=== PATIENT | female | born 1960 | race Caucasian/White ===

== ENCOUNTER 2017-01-13 13:17 | Inpatient (IN) | payer MEDICAID, OTHER ==
[2017-01-13] MEDS ORDERED: Multivitamin Inj 10 ML, Thiamine HCL 100 MG, Magnesium Sulfate 2 GM, Folic Acid 1 MG in... IV ONE (13:49)
--- NOTE | 2017-01-13 13:58 | ED Physician Chart ---
Chief Complaint/HPI - Patient Information Date Seen:: 01/13/17 Time Seen:: 13:40 Chief Complaint:: generalized weakness History of Present Illness:: fell yesterday because of generalized weakness striking right eyebrow on the floor. States her knees "gave out." Able to walk all right today. States she drinks about half a pint of vodka per day, enough "to keep the shakes away." Allergies:: Allergies Allergy/AdvReac Type Severity Reaction Status Date / Time No Known Allergies Allergy Verified 01/13/17 13:38 Vitals:: Vital Signs - 8 hr 01/13/17 13:38 Temp 96.6 F HR 100 RR 16 BP 105/65 O2 Sat % 100 Historian:: Patient Review:: Old Chart Reviewed Review of Systems - Review of Systems General/Constitutional: No fever, No chills Skin: Skin lesions Head: No headache Eyes: No loss of vision ENT: No earache Neck: No neck pain Cardio Vascular: No chest pain, No palpitations Pulmonary: No SOB GI: No nausea, No vomiting G/U: No dysuria, No frequency Musculoskeletal: No bone or joint pain, No back pain Endocrine: No polyuria, No polydipsia Psychiatric: No prior psych history Hematopoietic: No bruising Allergic/Immuno: No urticaria Neurological: No syncope, No focal symptoms Past Medical History - Past Medical History Past Medical History: No significant medical hx Family History: HTN Social History: Smoker, Other (smokes half a PPD) Surgical History: Appendectomy Psychiatricy History: None Medication: None Family Medical History - Family Member Niece History Unknown: Yes Mother History Unknown: Yes Ethnicity: Non- Living Status: Hx Family Cancer: No Hx Family Coronary Artery Disease: No Hx Family Congestive Heart Failure: No Hx Family Hypertension: Yes Hx Family Stroke: No Hx Family Diabetes: No Hx Family Seizures: No Hx Family Dementia: No Hx Family AIDS: No Hx Family HIV: No Hx Family COPD: No Hx Family Hepatitis: No Hx Family Psychiatric Problems: No Hx Family Tuberculosis: No Physical Exam - Physical Examination General/Constitutional: Awake Other Gen/Cons comments:: mildly chronically ill appearing; tremulous Other Head comments:: 1 cm crusted right lateral eyebrow laceration Eyes: Lids, conjuctiva normal, PERRL Skin: No rash, No ecchymosis, Well hydrated ENMT: External ears, nose nl, TM canals nl, Nasal exam nl, Lips, teeth, gums nl , Oropharynx nl, Tonsils nl Neck: No nuchal rigidity Respiratory: Nl effort/Exclusion, Clear to Auscultation, No Wheeze/Rhonchi/Rales Cardio Vascular: RRR, No murmur, gallop, rubs GI: No tenderness/rebounding/guarding, No organomegaly, No hernia, Nondistended , No mass/bruits : No CVA tenderness Extremities: No tenderness or effusion Neuro/Psych: No focal deficits Labs/Radiology/EKG Results - Lab Results Comments:: Laboratory Results - last 24 hr 01/13/17 01/13/17 01/13/17 13:50 13:50 13:50 WBC 8.2 RBC 2.43 L Hgb 7.9 L* Hct 23.2 L* D MCV 95.8 MCH 32.5 H MCHC Differential 33.9 RDW 21.1 H Plt Count 77 L MPV 7.3 Band Neutrophils % 1 Neutrophils (Manual) 87 H Lymphocytes 4 L Monocytes 7 Basophils 1 Nucleated RBCs 1.0 H Platelet Estimate DECREASED PLATELETS Platelet Morphology NORMAL Anisocytosis 1+ RBC Morph Micro Appear ABNORMAL PT 10.9 INR 1.05 Sodium 141 Potassium 3.3 L Chloride 104 Carbon Dioxide 19.1 L Anion Gap 21.2 H BUN 17 Creatinine 0.8 Est GFR ( Amer) > 60.0 Est GFR (Non-Af Amer) > 60.0 BUN/Creatinine Ratio 21.3 Glucose 208 H Calcium 8.7 Magnesium Total Bilirubin 0.5 AST 51 H ALT 30 Alkaline Phosphatase 80 Total Protein 6.0 Albumin 3.8 Globulin 2.2 Albumin/Globulin Ratio 1.7 Lipase 25 Ethyl Alcohol 256 H 01/13/17 13:50 WBC RBC Hgb Hct MCV MCH MCHC Differential RDW Plt Count MPV Band Neutrophils % Neutrophils (Manual) Lymphocytes Monocytes Basophils Nucleated RBCs Platelet Estimate Platelet Morphology Anisocytosis RBC Morph Micro Appear PT INR Sodium Potassium Chloride Carbon Dioxide Anion Gap BUN Creatinine Est GFR ( Amer) Est GFR (Non-Af Amer) BUN/Creatinine Ratio Glucose Calcium Magnesium 1.6 L Total Bilirubin AST ALT Alkaline Phosphatase Total Protein Albumin Globulin Albumin/Globulin Ratio Lipase Ethyl Alcohol ED Septic Shock - . Is Septic Shock (SBP<90, OR Lactate>4 mmol\\L) present?: No - <6hrs of presentation: Vital Signs: Vital Signs - 8 hr 01/13/17 13:38 Temp 96.6 F HR 100 RR 16 BP 105/65 O2 Sat % 100 Reassessment (Disposition) - Reassessment Reassessment Condition:: Unchanged - Diagnosis Diagnosis:: anemia; hypomagnesemia; hypokalemia; alcohol intoxication; acute and chronic alcohol abuse; alcohol withdrawal - Patient Disposition Admitted to:: Telemetry Spoke to:: Tyrese West Admitting Medical Physician:: Tyrese West Condition at Disposition:: Stable, Improved
[2017-01-13 14:11] LABS: MEAN CELL VOLUME 95.8 fl (81-100); MEAN CORPUSCULAR HEMOGLOBIN 32.5 pg (27.0-31.0); MEAN CORPUSCULAR HGB CONC 33.9 pg (28.0-36.0); MEAN PLATELET VOLUME 7.3 fl; RED BLOOD COUNT 2.43 Mil/cmm (3.80-5.10); RED CELL DISTRIBUTION WIDTH 21.1 % (11.5-20.0); WHITE BLOOD COUNT 8.2 Th/cmm (4.8-10.8)
[2017-01-13] MEDS ORDERED: Thiamine 100 mg/mL 2mL Vial ONE (14:13)
[2017-01-13] MEDS ORDERED: Magnesium Sulfate 1 gm/2 mL 2mL Vial IV ONE (14:13)
[2017-01-13] MEDS ORDERED: Multivitamin Inj 10 mL Vial IV ONE (14:14)
[2017-01-13 14:16] LABS: PLATELET COUNT 77 Th/cmm (150-400)
[2017-01-13 14:17] LABS: HEMATOCRIT 23.2 % (35.0-45.0); HEMOGLOBIN 7.9 gm/dL (11.7-15.5)
[2017-01-13 14:18] LABS: INR 1.05 (0.5-1.4); PROTHROMBIN TIME (TEST) 10.9 SECONDS (9.5-11.5)
[2017-01-13 14:22] LABS: ALB/GLOB RATIO 1.7 (1.0-1.8); ALKALINE PHOSPHATASE 80 U/L (34-104); ANION GAP 21.2 (7.0-16.0); BILIRUBIN,TOTAL 0.5 mg/dL (0.3-1.0); BUN - UREA NITROGEN 17 mg/dL (7-25); BUN/CREATININE RATIO 21.3; CALCIUM SERUM 8.7 mg/dL (8.6-10.3); CARBON DIOXIDE 19.1 mEq/L (21.0-31.0); CHLORIDE 104 mEq/L (98-107); CREATININE - SERUM 0.8 mg/dL (0.6-1.2); GLUCOSE 208 mg/dL (70-105); LIPASE 25 U/L (11-82); POTASSIUM SERUM 3.3 mEq/L (3.5-5.1); SGOT 51 U/L (13-39); SGPT/ALT 30 U/L (7-52); SODIUM SERUM 141 mEq/L (136-145)
[2017-01-13 15:15] LABS: ANISOCYTOSIS 1+; BAND NEUTROPHILE 1 % (0-10); BASOPHIL 1 % (0-3); NEUTROPHILS 87 % (40-80); PLATELET ESTIMATE DECREASED PLATELETS (NORMAL); PLATELET MORPHOLOGY NORMAL (NORMAL); TOTAL CELLS COUNTED 100
[2017-01-13] MEDS ORDERED: Potassium Chloride 20 mEq ER Tab PO ONE (15:37)
--- NOTE | 2017-01-13 17:16 | Admit Criteria Form ---
Admit Criteria Forms - Admit Criteria Diagnosis: ANEMIA, IRON DEFICIENCY OR UNSPECIFIED Clinical Indications for Inpatient Care (Place 'X' for any and all applicable criteria): Admission is indicated for ANY ONE of the following(1)(2)(3)(4)(5)(6)(7): [X] I. Inpatient admission required rather than observation care (Also use Anemia, Iron Deficiency or Unspecified: Observation Care guideline as appropriate) because of ANY ONE of the following: [] a) Hemodynamic instability that is severe or persistent [] b) Active bleeding that cannot be rapidly controlled [] c) CVS symptoms (i.e., dyspnea, chest pain, heart failure) that are severe or persistent [] d) Neurologic symptoms (i.e., cognitive impairment, recurrent syncope or near syncope) that are severe or persistent [] e) Cardiac arrhythmias of immediate concern [] f) Acute peripheral ischemia (e.g., pulseless, cool, mottled, or cyanotic extremity) [X] g) High-risk low platelet count [] h) Acute renal failure [] i) Ongoing transfusion for blood loss (greater than 2 units) [] j) IV fluid to replace significant ongoing (eg, >24 hours) losses (> 3 L/m2 per day) [] k) Pulmonary artery catheter monitoring [] l) Supplemental oxygen or respiratory treatments for over 24 hours that are performable only in acute inpatient setting [] m) Immediate inpatient surgery [] n) Other condition, treatment or monitoring requiring inpatient admission [] II Active massive hemorrhage [] III. Active hemolysis with rapidly progressive anemia [A](6) Extended stay beyond goal length of stay may be needed for (17)(18) []a) Diagnosed cause of anemia requiring longer hospitalization (eg, active GI bleeding, immune hemolysis requiring electrophoresis, complications of malignancy requiring acute care []b) Continued emergent anemia indicators (23) []c) Transfusion reactions []d) Associated leukopenia or thrombocytopenia needing inpatient care []e) Active comorbidities (eg, renal failure, heart failure) The original [employer] content created by [employer] has been revised. The portions of the content which have been revised are identified through the use of italic text or in bold. [employer] has neither reviewed nor approved the modified material. All other unmodified content is copyright [employer]. Please see references footnoted in the original [facility] edition 2016 Admit Criteria Met?: Yes
[2017-01-13] MEDS ORDERED: Potassium Chloride Elixir 20 mEq /15 mL UDC ONE (18:17)
[2017-01-14 03:55] LABS: URINE BILIRUBIN SMALL (NEGATIVE); URINE BLOOD LARGE (NEGATIVE); URINE COLOR AMBER; URINE GLUCOSE (UA) NEGATIVE (NEGATIVE); URINE KETONE 15 mg/dL (NEGATIVE); URINE PH 5.5
[2017-01-14 03:56] LABS: URINE EPITHELIAL CELLS NONE SEEN /lpf (FEW); URINE PROTEIN >300 mg/dL (NEGATIVE); URINE RBC 50-100 /hpf (0-5); URINE WBC NONE SEEN /hpf (0-5)
[2017-01-14 03:57] LABS: URINE AMORPHOUS SEDIMENT MODERATE URATES (NONE SEEN); URINE BACTERIA MANY /hpf (NONE SEEN)
[2017-01-14 06:04] LABS: MEAN CELL VOLUME 95.5 fl (81-100); MEAN CORPUSCULAR HGB CONC 34.6 pg (28.0-36.0); MEAN PLATELET VOLUME 7.8 fl; RED BLOOD COUNT 1.95 Mil/cmm (3.80-5.10); RED CELL DISTRIBUTION WIDTH 20.6 % (11.5-20.0)
[2017-01-14 06:13] LABS: ALB/GLOB RATIO 1.6 (1.0-1.8); ALKALINE PHOSPHATASE 74 U/L (34-104); BILIRUBIN,TOTAL 0.8 mg/dL (0.3-1.0); BUN - UREA NITROGEN 15 mg/dL (7-25); CALCIUM SERUM 8.6 mg/dL (8.6-10.3); CARBON DIOXIDE 26.5 mEq/L (21.0-31.0); CHLORIDE 102 mEq/L (98-107); CREATININE - SERUM 0.5 mg/dL (0.6-1.2); GLUCOSE 118 mg/dL (70-105); LIPASE 34 U/L (11-82); MAGNESIUM 1.8 mg/dL (1.9-2.7); POTASSIUM SERUM 3.5 mEq/L (3.5-5.1); SGOT 48 U/L (13-39); SGPT/ALT 26 U/L (7-52); SODIUM SERUM 137 mEq/L (136-145)
[2017-01-14 06:37] LABS: HEMATOCRIT 18.6 % (35.0-45.0); HEMOGLOBIN 6.4 gm/dL (11.7-15.5); PLATELET COUNT 44 Th/cmm (150-400); WHITE BLOOD COUNT 5.4 Th/cmm (4.8-10.8)
[2017-01-14] MEDS: cefTRIAXone 1 GM in Sodium Chloride 0.9% 50 ML IV SCH (08:33)
[2017-01-14] MEDS: Multivitamin Inj 10 ML, Thiamine HCL 100 MG, Magnesium Sulfate 2 GM, Folic Acid 1 MG in... IV SCH (08:36)
[2017-01-14 09:00] LABS: ANISOCYTOSIS 1+; BAND NEUTROPHILE 5 % (0-10); NEUTROPHILS 74 % (40-80); PLATELET ESTIMATE DECREASED PLATELETS (NORMAL); PLATELET MORPHOLOGY NORMAL (NORMAL); TOTAL CELLS COUNTED 100
[2017-01-14] MEDS: Ferrous Sulfate 325 MG TAB PO SCH ×3 (09:38→21:00)
[2017-01-14] MEDS: Azithromycin 500 MG in Sodium Chloride 0.9% 250 ML IV SCH (09:38)
[2017-01-14] MEDS: Lactobacillus Rhamnosus 10 Billion CFU Capsule PO SCH ×2 (09:39→16:53)
[2017-01-14] MEDS: Nicotine 14 mg/24 hr Tdm TD SCH (09:40)
--- NOTE | 2017-01-14 10:28 | Diagnostic Imaging Report ---
CHEST X-RAY: AP view INDICATION: Fever, shortness of breath COMPARISON: 06/17/2016 FINDINGS: Chronic lung changes are seen with no focal consolidation or effusions. Heart size is normal. Degenerative changes of the spine are noted. IMPRESSION: Chronic lung changes with no focal consolidation identified.
--- NOTE | 2017-01-14 11:45 | History & Physical ---
CHIEF COMPLAINT: Generalized weakness status post fall. HISTORY OF PRESENT ILLNESS: This is a 56-year-old female who presented to the ER with generalized weakness and tiredness for few weeks, worsening over the last couple of days. The patient apparently fell down on the floor a couple days ago while walking and striking her right eyebrow. She did not need any sutures and did not complain of any headaches, but stated that her legs just give out. She denies any syncopal episodes. She admits to heavy drinking on a daily basis about half a pint of vodka per day and has been doing that for many years. She states that in the past she has had some withdrawal symptoms, but drinks again to avoid them. She denies any medical problems. Of note, the patient is a poor historian. PERTINENT FINDINGS ON ADMISSION: Include H and H 7.9/23.2, platelet count of 77. UA consistent with the UTI and recurrent fevers and chills. On further questioning, the patient denies any chest pain, any shortness of breath, any UTI symptomatology and she as mentioned above, denies any major withdrawals in the past including DTs. The patient has been admitted to telemetry and has been placed on a banana bag and around the clock Librium and p.r.n. Ativan. She also has been started on empiric IV antibiotics. PAST MEDICAL HISTORY: Denies including psych disorder. PAST SURGICAL HISTORY: Denies. FAMILY HISTORY: Noncontributory. SOCIAL HISTORY: Tobacco, she smokes about half a pack of cigarettes a day and she started smoking at age 49. Alcohol, she is a daily drinker and could not tell me when she started drinking. She is going through divorce and [place] and has 2 grown daughters. ALLERGIES: NKDA. OUTPATIENT MEDICATIONS: Tylenol p.r.n., Depakote 250 b.i.d., Lexapro 5 mg every day, iron sulfate 325 t.i.d., Imodium 2 mg every day, transdermal patch 14 mg every day, olanzapine 5 mg at bedtime. REVIEW OF SYSTEMS: CONSTITUTIONAL: Prior to admission, she denied any fever or chills or any recent weight loss. CARDIOVASCULAR: No chest pain or palpitations. PULMONARY: No cough or phlegm production. GASTROINTESTINAL: She denies any nausea, vomiting, any hematemesis. She also denies any abdominal pain, melena or bright red blood per rectum. NEUROLOGIC: She denies any syncope. She denies any headaches, any changes in vision. PHYSICAL EXAMINATION: VITAL SIGNS: Temperature 101.2, pulse 116, blood pressure 117/70, respirations 20, satting 96% on room air. GENERAL: A well-developed, thin and somewhat disheveled appearing female, nontoxic. She is awake, alert and oriented x 2, able to answer questions appropriately. HEENT: Normocephalic, atraumatic. On right, there is some ecchymosis noted above the right eyebrow, but no open wounds. CARDIAC: Regular rate, tachy. LUNGS: Decreased at the bases, but overall clear to auscultation. ABDOMEN: Soft, supple, nontender, nondistended, normoactive bowel sounds. EXTREMITIES: There is no edema in the lower extremity. NEUROLOGIC: There are some tremors noted on the upper extremities. Cranial nerves 2-12 are within normal limits. She is grossly nonfocal. LABORATORY DATA: White count 8.2, H and H 7/23, platelet count 77. Sodium 141, potassium 3.3, carbon dioxide 19, BUN 17, creatinine 0.8, glucose 208 and magnesium 1.6. ALT 30, AST 51, alk phos 80. Lipase 25. UA shows large nitrite, large blood, positive for protein, many bacteria. Alcohol 256. DIAGNOSTICS: There is no diagnostics currently available. IMPRESSION: 1. Acute alcohol intoxication with withdrawals. 2. Generalized weakness. 3. Severe anemia, rule out gastrointestinal bleed, rule out liver disease. 4. Thrombocytopenia. 5. Urinary tract infection. PLAN: The patient has been admitted to a telemetry craft for further management and care. She has been placed on a banana bag and has been started on Librium at 25 mg q. 4 hours as well as Ativan 1 mg q. 4 p.r.n. She is receiving Protonix IV and empiric IV antibiotics, namely Rocephin, Zithromax, and Flagyl for broad spectrum coverage. We will monitor her labs on a daily basis. Anemia workup has been ordered including iron panel, CEA and occult blood testing. Two units of PRBCs had been ordered and a GI eval also has been asked for further management and care. [facility]# [id number] MTDD
[2017-01-14] MEDS: Escitalopram Oxalate 5 mg Tab PO SCH (14:29)
[2017-01-14] MEDS: metroNIDAZOLE 500mg/NS 100mL 500 MG/100 ML BAG IV SCH ×3 (14:30→23:15)
[2017-01-14 19:55] LABS: INR 1.1 (0.5-1.4); PROTHROMBIN TIME (TEST) 11.5 SECONDS (9.5-11.5)
[2017-01-14] MEDS: OLANZapine 5 mg Oral Disintegrating Tab PO SCH (20:59)
--- NOTE | 2017-01-15 02:36 | Consultation ---
INPATIENT GASTROINTESTINAL CONSULT REFERRING PHYSICIAN: Dr. West. REASON FOR CONSULTATION: Anemia. HISTORY OF PRESENT ILLNESS: A 56-year-old female, who drinks alcohol actively, came to the hospital and is being treated for potential alcohol withdrawal. The patient denies having any nausea or vomiting, denies having any diarrhea, denies melena or hematochezia. PAST MEDICAL HISTORY: Alcohol abuse. PAST SURGICAL HISTORY: ____. FAMILY HISTORY: Noncontributory. SOCIAL HISTORY: Smokes tobacco, drinks alcohol. No IV drug usage. ALLERGIES: None. CURRENT MEDICATIONS: Tylenol, azithromycin, ceftriaxone, Librium, Depakote, Lexapro, ____, Imodium, Ativan, Flagyl, Zyprexa, Zofran, and Protonix. REVIEW OF SYSTEMS: Ten-point review of system was performed and the pertinent positive is alcohol withdrawal. All other systems were otherwise negative. PHYSICAL EXAMINATION: VITAL SIGNS: Temperature 101.2, breathing 20, pulse of 116, blood pressure 117/70, satting 96%. GENERAL: In no apparent distress. EYES: Anicteric, normal conjunctivae. HEENT: Normocephalic, atraumatic. Moist mucous membranes. NECK: Soft, supple. CHEST: Clear, no effort. CARDIOVASCULAR: Regular rate and rhythm. ABDOMEN: Soft, nontender, nondistended. SKIN: Warm and dry. EXTREMITIES: Revealed no cyanosis. LABORATORY DATA: Show white count of 5.4, hemoglobin of 6.4, MCV of 95, platelets of 44. INR is 1.05. Total bilirubin 0.8, AST 48, ALT 26, alkaline phosphatase 74. Lipase is 25. Alcohol level is 256. IMPRESSION: This is a 56-year-old female with alcohol abuse, now on alcohol withdrawal, being treated by the primary team, was noted to be anemic, and therefore, we were asked to see this patient. Cause of the anemia could be from chronic disease, but could be from gastrointestinal blood loss. The patient clinically does not have any signs of overt gastrointestinal bleeding. Stool should be collected to determine if there is any blood loss. Further workup such as endoscopy will be reserved until the results of stool studies are back. The patient also has mildly elevated LFTs and was advised to cease all alcohol consumption, join Alcoholic Anonymous. The Maddrey score was less than 32, therefore prednisolone is not indicated at this time. PLAN: 1. Follow LFTs. 2. Avoid alcohol, join AA. 3. Follow H and H and transfuse as needed. 4. Check stool OB. 5. I will defer workup of ____ to the primary care provider. Thank you for allowing me to participate. Please call me if you have any questions. JOB# [id number]
[2017-01-15] MEDS: metroNIDAZOLE 500mg/NS 100mL 500 MG/100 ML BAG IV SCH ×4 (05:12→23:14)
[2017-01-15] MEDS: cefTRIAXone 1 GM in Sodium Chloride 0.9% 50 ML IV SCH (06:21)
[2017-01-15 06:28] LABS: RED BLOOD COUNT 2.65 Mil/cmm (3.80-5.10)
[2017-01-15 06:51] LABS: ANION GAP 11.5 (7.0-16.0); BUN - UREA NITROGEN 8 mg/dL (7-25); CALCIUM SERUM 8.6 mg/dL (8.6-10.3); CARBON DIOXIDE 22.4 mEq/L (21.0-31.0); CHLORIDE 107 mEq/L (98-107); CREATININE - SERUM 0.4 mg/dL (0.6-1.2); GLUCOSE 95 mg/dL (70-105); MAGNESIUM 2.1 mg/dL (1.9-2.7); SODIUM SERUM 138 mEq/L (136-145)
[2017-01-15 07:07] LABS: HEMATOCRIT 24.7 % (35.0-45.0); MEAN CELL VOLUME 93.3 fl (81-100); WHITE BLOOD COUNT 7.3 Th/cmm (4.8-10.8)
[2017-01-15 07:08] LABS: MEAN CORPUSCULAR HGB CONC 34.3 pg (28.0-36.0); MEAN PLATELET VOLUME 8.6 fl; PLATELET COUNT 36 Th/cmm (150-400)
[2017-01-15] MEDS: Azithromycin 500 MG in Sodium Chloride 0.9% 250 ML IV SCH (08:34)
[2017-01-15] MEDS: Escitalopram Oxalate 5 mg Tab PO SCH (08:35)
[2017-01-15] MEDS: Lactobacillus Rhamnosus 10 Billion CFU Capsule PO SCH ×2 (08:36→17:05)
[2017-01-15] MEDS: Ferrous Sulfate 325 MG TAB PO SCH ×3 (08:36→20:18)
[2017-01-15] MEDS: Nicotine 14 mg/24 hr Tdm TD SCH (08:36)
[2017-01-15] MEDS: Multivitamin Inj 10 ML, Thiamine HCL 100 MG, Magnesium Sulfate 2 GM, Folic Acid 1 MG in... IV SCH (09:45)
[2017-01-15 14:30] LABS: ANISOCYTOSIS 1+; BAND NEUTROPHILE 10 % (0-10); BASOPHIL 1 % (0-3); NEUTROPHILS 83 % (40-80); PLATELET ESTIMATE DECREASED PLATELETS (NORMAL); PLATELET MORPHOLOGY NORMAL (NORMAL); TOTAL CELLS COUNTED 100
[2017-01-15 15:33] LABS: HEMOGLOBIN 8.5 gm/dL (11.7-15.5)
[2017-01-15 15:36] LABS: POTASSIUM SERUM 2.9 mEq/L (3.5-5.1)
[2017-01-15] MEDS: KCL 20mEq/100mL Premix 40 MEQ/200 ML PIGGYBACK IV SCH ×2 (15:47→18:08)
[2017-01-15] MEDS: OLANZapine 5 mg Oral Disintegrating Tab PO SCH (20:18)
[2017-01-16 05:03] LABS: AMPHETAMINE URINE NEGATIVE (NEGATIVE); BARBITURATES URINE NEGATIVE (NEGATIVE)
[2017-01-16] MEDS: metroNIDAZOLE 500mg/NS 100mL 500 MG/100 ML BAG IV SCH ×4 (05:05→23:12)
[2017-01-16 05:23] LABS: HEMOGLOBIN 9.4 gm/dL (11.7-15.5)
[2017-01-16 05:28] LABS: MEAN CELL VOLUME 93.1 fl (81-100); MEAN CORPUSCULAR HEMOGLOBIN 32.2 pg (27.0-31.0); MEAN CORPUSCULAR HGB CONC 34.6 pg (28.0-36.0); RED BLOOD COUNT 2.92 Mil/cmm (3.80-5.10); RED CELL DISTRIBUTION WIDTH 18.6 % (11.5-20.0); WHITE BLOOD COUNT 7.2 Th/cmm (4.8-10.8)
[2017-01-16 05:38] LABS: HEMATOCRIT 27.2 % (35.0-45.0); PLATELET COUNT 58 Th/cmm (150-400)
[2017-01-16 05:46] LABS: ANION GAP 13.5 (7.0-16.0); BUN - UREA NITROGEN 7 mg/dL (7-25); BUN/CREATININE RATIO 17.5; CALCIUM SERUM 8.9 mg/dL (8.6-10.3); CARBON DIOXIDE 21.4 mEq/L (21.0-31.0); CHLORIDE 105 mEq/L (98-107); CREATININE - SERUM 0.4 mg/dL (0.6-1.2); GLUCOSE 90 mg/dL (70-105); SODIUM SERUM 137 mEq/L (136-145)
[2017-01-16 05:52] LABS: POTASSIUM SERUM 2.9 mEq/L (3.5-5.1)
[2017-01-16 05:55] LABS: INR 0.94 (0.5-1.4); PROTHROMBIN TIME (TEST) 9.8 SECONDS (9.5-11.5)
[2017-01-16] MEDS: cefTRIAXone 1 GM in Sodium Chloride 0.9% 50 ML IV SCH (06:16)
[2017-01-16] MEDS: D5-0.45NS w/40 mEq KCL 1,000 ML IV SCH ×2 (06:16→23:14)
[2017-01-16 09:10] LABS: ANISOCYTOSIS 1+; BAND NEUTROPHILE 7 % (0-10); EOSINOPHIL 2 % (0-5); NEUTROPHILS 75 % (40-80); PLATELET ESTIMATE DECREASED PLATELETS (NORMAL); PLATELET MORPHOLOGY NORMAL (NORMAL); TOTAL CELLS COUNTED 100
[2017-01-16] MEDS: Ferrous Sulfate 325 MG TAB PO SCH ×3 (09:17→20:43)
[2017-01-16] MEDS: Escitalopram Oxalate 5 mg Tab PO SCH (09:17)
[2017-01-16] MEDS: Lactobacillus Rhamnosus 10 Billion CFU Capsule PO SCH ×2 (09:17→17:36)
[2017-01-16] MEDS: Nicotine 14 mg/24 hr Tdm TD SCH (09:18)
--- NOTE | 2017-01-16 11:11 | Diagnostic Imaging Report ---
Head CT without intravenous contrast Indication: Fall Comparison: Head CT 06/16/2016 Technique: Axial images were obtained from the vertex to the skull base without IV contrast. Coronal reconstructions were made. Total DLP: 550, CTDI31.9 FINDINGS: Images of the brain obtained without contrast demonstrate no acute hemorrhage. No mass lesions identified. The ventricles and basal cisterns are patent. The killian-white matter differentiation is preserved. There is no mass effect or midline shift. Mild atrophy is noted. No skull fractures identified. No soft tissue swelling. There is mild mucosal thickening of the paranasal sinuses. IMPRESSION: No acute intracranial abnormality. Mild atrophy.
[2017-01-16] MEDS: OLANZapine 5 mg Oral Disintegrating Tab PO SCH (20:43)
[2017-01-17] MEDS: metroNIDAZOLE 500mg/NS 100mL 500 MG/100 ML BAG IV SCH ×3 (05:16→18:00)
[2017-01-17 06:07] LABS: HEMOGLOBIN 9.4 gm/dL (11.7-15.5); INR 0.9 (0.5-1.4); MEAN PLATELET VOLUME 7.3 fl; PROTHROMBIN TIME (TEST) 9.4 SECONDS (9.5-11.5)
[2017-01-17] MEDS: cefTRIAXone 1 GM in Sodium Chloride 0.9% 50 ML IV SCH (06:10)
[2017-01-17 06:11] LABS: HEMATOCRIT 27.2 % (35.0-45.0); MEAN CELL VOLUME 92.8 fl (81-100); MEAN CORPUSCULAR HEMOGLOBIN 32.1 pg (27.0-31.0); MEAN CORPUSCULAR HGB CONC 34.6 pg (28.0-36.0); RED BLOOD COUNT 2.93 Mil/cmm (3.80-5.10); RED CELL DISTRIBUTION WIDTH 17.9 % (11.5-20.0); WHITE BLOOD COUNT 6.3 Th/cmm (4.8-10.8)
[2017-01-17 06:15] LABS: ANION GAP 9.4 (7.0-16.0); BUN - UREA NITROGEN 5 mg/dL (7-25); BUN/CREATININE RATIO 12.5; CALCIUM SERUM 8.6 mg/dL (8.6-10.3); CARBON DIOXIDE 26.2 mEq/L (21.0-31.0); CHLORIDE 106 mEq/L (98-107); CREATININE - SERUM 0.4 mg/dL (0.6-1.2); GLUCOSE 123 mg/dL (70-105); SODIUM SERUM 139 mEq/L (136-145)
[2017-01-17 06:17] LABS: PLATELET COUNT 79 Th/cmm (150-400)
[2017-01-17 06:23] LABS: POTASSIUM SERUM 2.6 mEq/L (3.5-5.1)
[2017-01-17] MEDS: Ferrous Sulfate 325 MG TAB PO SCH ×3 (09:03→21:10)
[2017-01-17] MEDS: Escitalopram Oxalate 5 mg Tab PO SCH ×2 (09:03→13:07)
[2017-01-17] MEDS: Lactobacillus Rhamnosus 10 Billion CFU Capsule PO SCH ×2 (09:04→18:00)
[2017-01-17] MEDS: Azithromycin 500 MG in Sodium Chloride 0.9% 250 ML IV SCH (09:09)
[2017-01-17] MEDS: Nicotine 14 mg/24 hr Tdm TD SCH (09:12)
[2017-01-17 09:17] LABS: ANISOCYTOSIS 1+; BAND NEUTROPHILE 5 % (0-10); EOSINOPHIL 3 % (0-5); NEUTROPHILS 64 % (40-80); PLATELET ESTIMATE DECREASED PLATELETS (NORMAL); PLATELET MORPHOLOGY GIANT PLATELETS SEEN (NORMAL); POLYCHROMASIA 1+; TOTAL CELLS COUNTED 100
[2017-01-17] MEDS ORDERED: Lidocaine 2% Gel 5 mL TP ONE (11:00)
--- NOTE | 2017-01-17 11:35 | Consultation ---
REFERRING PHYSICIAN: Dr. West and Dr. Alonso. REASON FOR CONSULTATION: Thrombocytopenia. HISTORY OF PRESENT ILLNESS: The patient is a 56-year-old female who presented with weakness, status post fall at home and hematoma in the right periorbital area. The patient was found to have a low platelet count and on followup, her platelets improved. She had alcohol withdrawal and her admission alcohol level was ____. She was treated with Ativan and Librium. Her followup CBC showed improvement of the blood count. PAST MEDICAL HISTORY: Denied chronic medical problems. PAST SURGICAL HISTORY: None known. MEDICATIONS: Reviewed including folic acid, thiamine and multivitamin. PHYSICAL EXAMINATION: GENERAL: She is awake, alert, oriented. VITAL SIGNS: Stable. HEENT: There is hematoma in the right periorbital area. No cranial nerve palsy. LYMPHATICS: No peripheral lymphadenopathy. CHEST: Clear. ABDOMEN: Soft. EXTREMITIES: No edema. NERVOUS SYSTEM: No focal deficits. There are fine tremors. LABORATORY DATA: Platelet count 79, hemoglobin 9.4, white count 6.3. Alcohol level ____. PT and PTT normal. Potassium 2.6, creatinine 0.4. ASSESSMENT: 1. Alcohol intoxication and withdrawal. 2. Thrombocytopenia secondary to bone marrow suppression and toxicity from the alcohol. It seems that the platelet count is improving with current supportive care with folic acid, thiamine, multivitamin and I expect continued recovery of the marrow and improvement of the cytopenia over the past few days with proper nutrition support. Thank you for the opportunity to participate in the care of this interesting case. JOB# [id number]
--- NOTE | 2017-01-17 12:24 | Operative Report ---
INPATIENT GASTROINTESTINAL PROCEDURE PROCEDURE: EGD wit biopsy. REFERRING PHYSICIAN: Dr. West. REASON FOR PROCEDURE: Melena. CONSENT: Risks, benefits, alternatives, nature, indication, possible outcomes were discussed. Mentioned bleeding, infection, perforation, , disability, cardiopulmonary distress and arrest, missed lesion and cancers, need for surgery. The patient expressed understanding and provided informed consent. PREOPERATIVE DIAGNOSES: Anemia, melena. POSTOPERATIVE DIAGNOSES: Hiatal hernia, gastritis. MEDICATIONS: MAC provided by anesthesiologist due to high tolerance. DESCRIPTION OF PROCEDURE: The patient was placed on left side. Upper gastroscope advanced from the mouth and second portion of duodenum. Scope brought back in the stomach. Retroflexion view of fundus, cardia, lesser curvature, hiatal hernia. Scope was straightened and slowly withdrawn through the esophagus and removed. COMPLICATIONS: None. FINDINGS: 1. Hiatal hernia. 2. GE junction at 36 cm. 3. Gastritis, status post biopsy. 4. Normal duodenum. RECOMMENDATIONS: 1. Follow up on biopsy. 2. Provide the patient with Protonix. 3. Consider colonoscopy if hemoglobin drops or any sign of GI bleeding. Thank you for allowing me to participate. Please call me if any questions. JOB# [id number]
[2017-01-17] MEDS: Multivitamin Inj 10 ML, Thiamine HCL 100 MG, Magnesium Sulfate 2 GM, Folic Acid 1 MG in... IV SCH (13:07)
[2017-01-17] MEDS ORDERED: Potassium Chloride 40 MEQ, Lidocaine 1% 20mL Vial 25 MG in Sodium Chloride 0.9% 250 ML IV ONE (13:30)
[2017-01-17] MEDS: OLANZapine 5 mg Oral Disintegrating Tab PO SCH (21:10)
[2017-01-17] MEDS ORDERED: Magnesium Citrate 1.75 GM/300 mL Bottle PO ONE (23:41)
[2017-01-18] MEDS: metroNIDAZOLE 500mg/NS 100mL 500 MG/100 ML BAG IV SCH ×4 (00:21→18:25)
[2017-01-18] MEDS: cefTRIAXone 1 GM in Sodium Chloride 0.9% 50 ML IV SCH (06:10)
[2017-01-18] MEDS: D5-0.45NS w/40 mEq KCL 1,000 ML IV SCH (06:11)
[2017-01-18 06:13] LABS: FERRITIN 144 ng/mL (15-150); FOLIC ACID 17.3 ng/mL (>3.0); IRON SATURATION 4 % (15-55); TIBC (LCI) 188 ug/dL (250-450); UIBC 180 ug/dL (131-425)
[2017-01-18] MEDS ORDERED: Azithromycin 500 mg in 0.9% NS 250 mL IV SCH (08:00)
[2017-01-18] MEDS: Nicotine 14 mg/24 hr Tdm TD SCH (09:36)
[2017-01-18] MEDS: Lactobacillus Rhamnosus 10 Billion CFU Capsule PO SCH ×2 (09:41→18:25)
[2017-01-18] MEDS: Ferrous Sulfate 325 MG TAB PO SCH ×3 (09:42→21:23)
[2017-01-18] MEDS: Escitalopram Oxalate 5 mg Tab PO SCH (09:42)
[2017-01-18 09:54] LABS: HEMOGLOBIN 10.9 gm/dL (11.7-15.5); MEAN PLATELET VOLUME 7.8 fl; RED BLOOD COUNT 3.41 Mil/cmm (3.80-5.10); RED CELL DISTRIBUTION WIDTH 18.6 % (11.5-20.0)
[2017-01-18 09:57] LABS: HEMATOCRIT 32.1 % (35.0-45.0); PLATELET COUNT 109 Th/cmm (150-400); WHITE BLOOD COUNT 4.1 Th/cmm (4.8-10.8)
[2017-01-18 10:41] LABS: BASOPHIL 2 % (0-3); EOSINOPHIL 4 % (0-5); NEUTROPHILS 48 % (40-80); TOTAL CELLS COUNTED 100
[2017-01-18 10:42] LABS: PLATELET ESTIMATE DECREASED PLATELETS (NORMAL); PLATELET MORPHOLOGY NORMAL (NORMAL)
[2017-01-18 11:04] LABS: ANION GAP 11.1 (7.0-16.0); BUN - UREA NITROGEN 4 mg/dL (7-25); BUN/CREATININE RATIO 13.3; CALCIUM SERUM 8.9 mg/dL (8.6-10.3); CARBON DIOXIDE 26.5 mEq/L (21.0-31.0); CHLORIDE 108 mEq/L (98-107); CREATININE - SERUM 0.3 mg/dL (0.6-1.2); GLUCOSE 108 mg/dL (70-105); SODIUM SERUM 143 mEq/L (136-145)
[2017-01-18 11:07] LABS: POTASSIUM SERUM 2.6 mEq/L (3.5-5.1)
[2017-01-18] MEDS ORDERED: Simethicone 20 mg/0.3 mL 30mL Bottle PO ONE (11:35)
[2017-01-18] MEDS: Potassium Chloride 20 mEq ER Tab PO SCH (11:36)
--- NOTE | 2017-01-18 13:57 | Operative Report ---
NAME OF PROCEDURE: Colonoscopy with biopsy, snare polypectomy. REFERRING PHYSICIAN: Dr. West. REASON FOR PROCEDURE: Melena. CONSENT: Risks, benefits, alternatives, nature, indication, and possible outcomes were discussed. Mentioned bleeding, infection, perforation, , disability, cardiopulmonary distress and arrest, missed lesions and cancers, need for surgery. The patient expressed understanding and provided informed consent. PREOPERATIVE DIAGNOSES: Melena, anemia. POSTOPERATIVE DIAGNOSES: Colonic polyp and diverticulosis. MEDICATIONS: Provided by anesthesiologist. DESCRIPTION OF PROCEDURE: The patient was placed on the left side. Rectal exam was performed and normal. Pediatric colonoscope was advanced from the anus to cecum, confirmed by appendiceal orifice and ileocecal valve. Scope was slowly withdrawn evaluating mucosa along the way. Once in the rectum, retroflexion was performed. The scope was then straightened and removed along with air. COMPLICATIONS: None. FINDINGS: 1. Transverse polyp removed by forceps measuring 3 mm. 2. Rectal polyp measuring 5 mm removed by snare polypectomy. 3. Mild diverticulosis in the sigmoid and ascending colon. No active bleeding was seen. RECOMMENDS: 1. Repeat colonoscopy in 5 years. 2. Follow up on biopsy. 3. Avoid ____. 4. Follow H and H. Thank you for allowing me to participate. Please call me if you have any questions. JOB# [id number]
--- NOTE | 2017-01-18 20:05 | Pathology Report ---
[id number] Collection Date: 01/17/2017 Surgeon: Dr. Anuj Almonte Specimen Description: 1. Antrum biopsy 2. Duodenum biopsy Gross Description: Part I: Received in formalin are two michelle soft tissue fragments ranging from 0.1 to 0.2 cm in greatest dimension. Totally submitted in one cassette labeled A. Gross Description: Part II: Received in formalin are two michelle soft tissue fragments ranging from 0.1 to 0.2 cm in greatest dimension. Totally submitted in one cassette labeled B. Microscopic Description: Part I: The histologic sections show gastric mucosa with mild chronic inflammation present consisting of lymphocytes and plasma cells. The Giemsa stain shows no evidence for Helicobacter pylori. Diagnosis: Part I: 1. Mild chronic gastritis, antrum biopsy. 2. The Giemsa stain is negative for Helicobacter pylori. Microscopic Description: Part II: The histologic sections show duodenal mucosa with intact intestinal villi, showing no evidence for villous abnormalities. Diagnosis: Part II: No evidence for celiac disease/Sprue (duodenal biopsy). [facility]# [id number] [facility]
[2017-01-18] MEDS: OLANZapine 5 mg Oral Disintegrating Tab PO SCH (21:23)
[2017-01-19] MEDS: metroNIDAZOLE 500mg/NS 100mL 500 MG/100 ML BAG IV SCH ×4 (01:06→17:19)
[2017-01-19] MEDS: D5-0.45NS w/40 mEq KCL 1,000 ML IV SCH (06:54)
[2017-01-19] MEDS: cefTRIAXone 1 GM in Sodium Chloride 0.9% 50 ML IV SCH (06:58)
[2017-01-19 07:13] LABS: MEAN CELL VOLUME 93.1 fl (81-100); MEAN CORPUSCULAR HGB CONC 34.4 pg (28.0-36.0); MEAN PLATELET VOLUME 7.7 fl; RED BLOOD COUNT 3.12 Mil/cmm (3.80-5.10); RED CELL DISTRIBUTION WIDTH 18.6 % (11.5-20.0)
[2017-01-19 07:26] LABS: PLATELET COUNT 183 Th/cmm (150-400); WHITE BLOOD COUNT 5.5 Th/cmm (4.8-10.8)
[2017-01-19 07:42] LABS: ANION GAP 3.3 (7.0-16.0); CALCIUM SERUM 8.7 mg/dL (8.6-10.3); CARBON DIOXIDE 29.4 mEq/L (21.0-31.0); CHLORIDE 109 mEq/L (98-107); CREATININE - SERUM 0.3 mg/dL (0.6-1.2); GLUCOSE 99 mg/dL (70-105); MAGNESIUM 1.6 mg/dL (1.9-2.7); SODIUM SERUM 139 mEq/L (136-145)
[2017-01-19 08:20] LABS: BUN - UREA NITROGEN 2 mg/dL (7-25); BUN/CREATININE RATIO 6.7; POTASSIUM SERUM 2.7 mEq/L (3.5-5.1)
[2017-01-19] MEDS: Ferrous Sulfate 325 MG TAB PO SCH ×3 (09:07→20:46)
[2017-01-19] MEDS: Escitalopram Oxalate 5 mg Tab PO SCH (09:07)
[2017-01-19] MEDS: Lactobacillus Rhamnosus 10 Billion CFU Capsule PO SCH ×2 (09:08→17:19)
[2017-01-19] MEDS: Potassium Chloride 20 mEq ER Tab PO SCH (09:08)
[2017-01-19] MEDS: Nicotine 14 mg/24 hr Tdm TD SCH (09:09)
[2017-01-19] MEDS: Multivitamin Inj 10 ML, Thiamine HCL 100 MG, Magnesium Sulfate 2 GM, Folic Acid 1 MG in... IV SCH ×2 (09:19→10:10)
[2017-01-19] MEDS ORDERED: Mag Sulfate 2gm/50mL Premix 2 GM/50 ML BAG IV ONE (09:25)
[2017-01-19 09:50] LABS: BAND NEUTROPHILE 4 % (0-10); EOSINOPHIL 1 % (0-5); NEUTROPHILS 42 % (40-80); TOTAL CELLS COUNTED 100
[2017-01-19 09:51] LABS: ANISOCYTOSIS 1+; PLATELET ESTIMATE ADEQUATE (NORMAL); PLATELET MORPHOLOGY NORMAL (NORMAL)
[2017-01-19] MEDS ORDERED: Potassium Chloride 40 MEQ, Lidocaine 1% 20mL Vial 25 MG in Sodium Chloride 0.9% 250 ML IV ONE (10:00)
--- NOTE | 2017-01-19 16:10 | Pathology Report ---
[id number] Collection Date: 01/18/2017 Surgeon: Dr. Anuj Almonte Specimen Description: 1. Transverse colon biopsy 2. Rectal polyp Gross Description: Part I: Received in formalin are two michelle soft tissue fragments ranging from 0.1 to 0.2 cm in greatest dimension. Totally submitted in one cassette labeled A. Gross Description: Part II: Received in formalin is a 0.6 cm michelle polyp. This polyp is bisected and totally submitted in one cassette labeled B. Microscopic Description: Part I: The histologic sections show colon mucosa with adenomatous glandular changes present consisting of nuclear enlargement and stratification with mostly tubules, consistent with tubular adenoma. Diagnosis: Part I: Benign adenomatous polyp consistent with tubular adenoma (transverse colon biopsy). Microscopic Description: Part II: The histologic sections show a polypoid portion of colon mucosa with hyperplastic glandular changes present, consistent with benign hyperplastic polyp. Diagnosis: Part II: Benign hyperplastic polyp, rectum. [facility]# [id number] MTDRony
[2017-01-19] MEDS: OLANZapine 5 mg Oral Disintegrating Tab PO SCH (20:46)
[2017-01-20 08:40] LABS: HEMATOCRIT 30.5 % (35.0-45.0); HEMOGLOBIN 10.4 gm/dL (11.7-15.5); MEAN CELL VOLUME 94.4 fl (81-100); MEAN CORPUSCULAR HEMOGLOBIN 32.3 pg (27.0-31.0); MEAN CORPUSCULAR HGB CONC 34.2 pg (28.0-36.0); MEAN PLATELET VOLUME 7.6 fl; RED BLOOD COUNT 3.23 Mil/cmm (3.80-5.10); RED CELL DISTRIBUTION WIDTH 18.1 % (11.5-20.0)
[2017-01-20 08:42] LABS: PLATELET COUNT 289 Th/cmm (150-400)
[2017-01-20 09:11] LABS: ANION GAP 2.6 (7.0-16.0); CHLORIDE 107 mEq/L (98-107); CREATININE - SERUM 0.3 mg/dL (0.6-1.2); GLUCOSE 128 mg/dL (70-105); MAGNESIUM 1.8 mg/dL (1.9-2.7); SODIUM SERUM 136 mEq/L (136-145)
[2017-01-20 09:28] LABS: BUN - UREA NITROGEN 2 mg/dL (7-25); BUN/CREATININE RATIO 6.7
[2017-01-20 09:29] LABS: POTASSIUM SERUM 2.6 mEq/L (3.5-5.1)
--- NOTE | 2017-01-20 09:40 | Diagnostic Imaging Report ---
Small bowel follow-through HISTORY: Anemia Radiopaque contrast was administered orally. There is free flow contrast from the stomach into the duodenum. The small bowel exhibits a normal caliber and mucosal fold pattern. No focal abnormalities are seen. The terminal ileum is incompletely visualized due to overlying bowel loops. No evidence of any extrinsic masses. IMPRESSION: 1. No definite abnormalities. No evidence of obstruction.
[2017-01-20] MEDS: Potassium Chloride 20 mEq ER Tab PO SCH (09:41)
[2017-01-20] MEDS: Lactobacillus Rhamnosus 10 Billion CFU Capsule PO SCH ×2 (09:41→16:48)
[2017-01-20] MEDS: Ferrous Sulfate 325 MG TAB PO SCH ×3 (09:41→22:26)
[2017-01-20] MEDS: Escitalopram Oxalate 5 mg Tab PO SCH (09:41)
[2017-01-20] MEDS: Nicotine 14 mg/24 hr Tdm TD SCH (09:42)
[2017-01-20] MEDS ORDERED: Mag Sulfate 2gm/50mL Premix 2 GM/50 ML BAG IV ONE (09:54)
[2017-01-20 10:13] LABS: ANISOCYTOSIS 1+; BASOPHIL 1 % (0-3); EOSINOPHIL 1 % (0-5); NEUTROPHILS 56 % (40-80); PLATELET ESTIMATE ADEQUATE (NORMAL); PLATELET MORPHOLOGY NORMAL (NORMAL); TOTAL CELLS COUNTED 100
[2017-01-20] MEDS: KCL 20mEq/100mL Premix 20 MEQ/100 ML PIGGYBACK IV SCH ×2 (10:14→12:41)
[2017-01-20] MEDS: Multivitamin Inj 10 ML, Thiamine HCL 100 MG, Magnesium Sulfate 2 GM, Folic Acid 1 MG in... IV SCH (15:47)
[2017-01-20] MEDS ORDERED: Multivitamin Inj 10 ML, Thiamine HCL 100 MG, Magnesium Sulfate 2 GM, Folic Acid 1 MG in... IV SCH (19:41)
[2017-01-20] MEDS: OLANZapine 5 mg Oral Disintegrating Tab PO SCH (22:30)
[2017-01-21 06:50] LABS: ANION GAP 5.9 (7.0-16.0); BUN - UREA NITROGEN 3 mg/dL (7-25); CALCIUM SERUM 9.1 mg/dL (8.6-10.3); CARBON DIOXIDE 30.2 mEq/L (21.0-31.0); CHLORIDE 107 mEq/L (98-107); CREATININE - SERUM 0.3 mg/dL (0.6-1.2); GLUCOSE 98 mg/dL (70-105); POTASSIUM SERUM 3.1 mEq/L (3.5-5.1); SODIUM SERUM 140 mEq/L (136-145)
[2017-01-21 07:01] LABS: HEMATOCRIT 30.9 % (35.0-45.0); HEMOGLOBIN 10.4 gm/dL (11.7-15.5); MEAN CELL VOLUME 95.3 fl (81-100); MEAN CORPUSCULAR HEMOGLOBIN 32.2 pg (27.0-31.0); MEAN CORPUSCULAR HGB CONC 33.8 pg (28.0-36.0); MEAN PLATELET VOLUME 8.1 fl; RED BLOOD COUNT 3.25 Mil/cmm (3.80-5.10)
[2017-01-21 07:18] LABS: PLATELET COUNT 388 Th/cmm (150-400); WHITE BLOOD COUNT 7.8 Th/cmm (4.8-10.8)
[2017-01-21] MEDS: Lactobacillus Rhamnosus 10 Billion CFU Capsule PO SCH ×2 (08:17→16:54)
[2017-01-21] MEDS: Escitalopram Oxalate 5 mg Tab PO SCH (08:17)
[2017-01-21] MEDS: Potassium Chloride 20 mEq ER Tab PO SCH (08:17)
[2017-01-21] MEDS: Ferrous Sulfate 325 MG TAB PO SCH ×3 (08:17→21:23)
[2017-01-21] MEDS: Nicotine 14 mg/24 hr Tdm TD SCH (08:24)
[2017-01-21 08:40] LABS: ANISOCYTOSIS 1+; BAND NEUTROPHILE 1 % (0-10); EOSINOPHIL 1 % (0-5); NEUTROPHILS 61 % (40-80); PLATELET ESTIMATE ADEQUATE (NORMAL); PLATELET MORPHOLOGY NORMAL (NORMAL); POLYCHROMASIA 1+; TOTAL CELLS COUNTED 100
[2017-01-21] MEDS ORDERED: Potassium Chloride 20 mEq ER Tab PO ONE ×2 (09:19→10:10)
[2017-01-21] MEDS: MAGNESIUM SULFATE IV SCH (10:45)
[2017-01-21] MEDS: THIAMINE HCL IV SCH (10:45)
[2017-01-21] MEDS: [UNRECOGNIZED DRUG - OTHER] IV SCH (10:45)
[2017-01-21] MEDS: MULTIVITAMIN IV SCH (10:45)
[2017-01-21] MEDS: FOLIC ACID IV SCH (10:45)
[2017-01-21] MEDS: OLANZapine 5 mg Oral Disintegrating Tab PO SCH (21:22)
[2017-01-22 05:24] LABS: % BASOPHILS 0.7 % (0.0-2.0); % EOSINOPHILS 0.6 % (0.0-5.0); % LYMPHOCYTES 14.4 % (20.0-50.0); % MONOCYTES 14.5 % (2.0-10.0); % NEUTROPHILS 69.8 % (40.0-80.0); HEMATOCRIT 29.2 % (35.0-45.0); HEMOGLOBIN 9.9 gm/dL (11.7-15.5); MEAN CELL VOLUME 93.9 fl (81-100); MEAN CORPUSCULAR HEMOGLOBIN 31.8 pg (27.0-31.0); MEAN CORPUSCULAR HGB CONC 33.8 pg (28.0-36.0); MEAN PLATELET VOLUME 7.9 fl; PLATELET COUNT 447 Th/cmm (150-400); RED BLOOD COUNT 3.11 Mil/cmm (3.80-5.10); RED CELL DISTRIBUTION WIDTH 19.3 % (11.5-20.0); WHITE BLOOD COUNT 8.8 Th/cmm (4.8-10.8)
[2017-01-22 05:33] LABS: ANION GAP 5.5 (7.0-16.0); BUN - UREA NITROGEN 3 mg/dL (7-25); BUN/CREATININE RATIO 7.5; CARBON DIOXIDE 29.1 mEq/L (21.0-31.0); CHLORIDE 112 mEq/L (98-107); CREATININE - SERUM 0.4 mg/dL (0.6-1.2); GLUCOSE 102 mg/dL (70-105); POTASSIUM SERUM 3.6 mEq/L (3.5-5.1); SODIUM SERUM 143 mEq/L (136-145)
[2017-01-22] MEDS: Ferrous Sulfate 325 MG TAB PO SCH ×3 (08:54→21:06)
[2017-01-22] MEDS: Lactobacillus Rhamnosus 10 Billion CFU Capsule PO SCH ×2 (08:54→16:15)
[2017-01-22] MEDS: Escitalopram Oxalate 5 mg Tab PO SCH (08:54)
[2017-01-22] MEDS: [UNRECOGNIZED DRUG - OTHER] IV SCH (08:57)
[2017-01-22] MEDS: MULTIVITAMIN IV SCH (08:57)
[2017-01-22] MEDS: Potassium Chloride 20 mEq ER Tab PO SCH (08:57)
[2017-01-22] MEDS: FOLIC ACID IV SCH (08:57)
[2017-01-22] MEDS: THIAMINE HCL IV SCH (08:57)
[2017-01-22] MEDS: MAGNESIUM SULFATE IV SCH (08:57)
[2017-01-22] MEDS: Nicotine 14 mg/24 hr Tdm TD SCH (09:02)
[2017-01-22] MEDS ORDERED: Mag Sulfate 2gm/50mL Premix 2 GM/50 ML BAG IV ONE (12:37)
[2017-01-22] MEDS: OLANZapine 5 mg Oral Disintegrating Tab PO SCH (21:05)
[2017-01-23 07:23] LABS: % BASOPHILS 0.1 % (0.0-2.0); % EOSINOPHILS 0.8 % (0.0-5.0); % LYMPHOCYTES 11.1 % (20.0-50.0); % MONOCYTES 11.4 % (2.0-10.0); % NEUTROPHILS 76.6 % (40.0-80.0); HEMATOCRIT 29.9 % (35.0-45.0); HEMOGLOBIN 10.3 gm/dL (11.7-15.5); MEAN CELL VOLUME 93.6 fl (81-100); MEAN CORPUSCULAR HEMOGLOBIN 32.2 pg (27.0-31.0); MEAN CORPUSCULAR HGB CONC 34.5 pg (28.0-36.0); NEUTROPHILE ABSOLUTE 9.3 Th/cmm (1.8-8.0); PLATELET COUNT 526 Th/cmm (150-400); RED CELL DISTRIBUTION WIDTH 19.6 % (11.5-20.0)
[2017-01-23 07:33] LABS: ANION GAP 7.9 (7.0-16.0); BUN - UREA NITROGEN 5 mg/dL (7-25); BUN/CREATININE RATIO 12.5; CALCIUM SERUM 9.3 mg/dL (8.6-10.3); CARBON DIOXIDE 29.6 mEq/L (21.0-31.0); CHLORIDE 106 mEq/L (98-107); CREATININE - SERUM 0.4 mg/dL (0.6-1.2); GLUCOSE 99 mg/dL (70-105); POTASSIUM SERUM 3.5 mEq/L (3.5-5.1); SODIUM SERUM 140 mEq/L (136-145)
[2017-01-23 08:13] LABS: WHITE BLOOD COUNT 12.1 Th/cmm (4.8-10.8)
[2017-01-23] MEDS: Nicotine 14 mg/24 hr Tdm TD SCH (09:08)
[2017-01-23] MEDS: Lactobacillus Rhamnosus 10 Billion CFU Capsule PO SCH ×2 (09:09→17:50)
[2017-01-23] MEDS: Potassium Chloride 20 mEq ER Tab PO SCH (09:10)
[2017-01-23] MEDS: Escitalopram Oxalate 5 mg Tab PO SCH (09:10)
[2017-01-23] MEDS: Ferrous Sulfate 325 MG TAB PO SCH ×3 (09:10→21:18)
[2017-01-23] MEDS: FOLIC ACID IV SCH (10:22)
[2017-01-23] MEDS: MAGNESIUM SULFATE IV SCH (10:22)
[2017-01-23] MEDS: THIAMINE HCL IV SCH (10:22)
[2017-01-23] MEDS: [UNRECOGNIZED DRUG - OTHER] IV SCH (10:22)
[2017-01-23] MEDS: MULTIVITAMIN IV SCH (10:22)
[2017-01-23] MEDS ORDERED: Mag Sulfate 2gm/50mL Premix 2 GM/50 ML BAG IV ONE (12:00)
[2017-01-23] MEDS: OLANZapine 5 mg Oral Disintegrating Tab PO SCH (21:18)
[2017-01-24 05:45] LABS: % BASOPHILS 0.6 % (0.0-2.0); % EOSINOPHILS 0.8 % (0.0-5.0); % LYMPHOCYTES 13.3 % (20.0-50.0); % MONOCYTES 10.2 % (2.0-10.0); % NEUTROPHILS 75.1 % (40.0-80.0); HEMATOCRIT 31.1 % (35.0-45.0); HEMOGLOBIN 10.6 gm/dL (11.7-15.5); MEAN CELL VOLUME 95.4 fl (81-100); MEAN CORPUSCULAR HEMOGLOBIN 32.4 pg (27.0-31.0); NEUTROPHILE ABSOLUTE 7.7 Th/cmm (1.8-8.0); PLATELET COUNT 583 Th/cmm (150-400); RED BLOOD COUNT 3.26 Mil/cmm (3.80-5.10); RED CELL DISTRIBUTION WIDTH 20.4 % (11.5-20.0); WHITE BLOOD COUNT 10.4 Th/cmm (4.8-10.8)
[2017-01-24 06:09] LABS: ANION GAP 3.5 (7.0-16.0); BUN - UREA NITROGEN 5 mg/dL (7-25); BUN/CREATININE RATIO 12.5; CALCIUM SERUM 9.4 mg/dL (8.6-10.3); CHLORIDE 107 mEq/L (98-107); CREATININE - SERUM 0.4 mg/dL (0.6-1.2); GLUCOSE 97 mg/dL (70-105); MAGNESIUM 1.8 mg/dL (1.9-2.7); POTASSIUM SERUM 3.5 mEq/L (3.5-5.1); SODIUM SERUM 138 mEq/L (136-145)
[2017-01-24] MEDS: Potassium Chloride 20 mEq ER Tab PO SCH (08:52)
[2017-01-24] MEDS: Nicotine 14 mg/24 hr Tdm TD SCH (08:52)
[2017-01-24] MEDS: Ferrous Sulfate 325 MG TAB PO SCH ×3 (08:53→21:03)
[2017-01-24] MEDS: Lactobacillus Rhamnosus 10 Billion CFU Capsule PO SCH ×2 (08:53→17:14)
[2017-01-24] MEDS: Escitalopram Oxalate 5 mg Tab PO SCH (08:53)
[2017-01-24] MEDS ORDERED: Mag Sulfate 2gm/50mL Premix 2 GM/50 ML BAG IV ONE (09:16)
[2017-01-24] MEDS: MAGNESIUM SULFATE IV SCH (10:03)
[2017-01-24] MEDS: MULTIVITAMIN IV SCH (10:03)
[2017-01-24] MEDS: FOLIC ACID IV SCH (10:03)
[2017-01-24] MEDS: [UNRECOGNIZED DRUG - OTHER] IV SCH (10:03)
[2017-01-24] MEDS: THIAMINE HCL IV SCH (10:03)
[2017-01-24] MEDS: OLANZapine 5 mg Oral Disintegrating Tab PO SCH (21:03)
[2017-01-25 07:48] LABS: ANION GAP 6.2 (7.0-16.0); BUN - UREA NITROGEN 6 mg/dL (7-25); CALCIUM SERUM 9.8 mg/dL (8.6-10.3); CARBON DIOXIDE 30.5 mEq/L (21.0-31.0); CHLORIDE 108 mEq/L (98-107); CREATININE - SERUM 0.4 mg/dL (0.6-1.2); GLUCOSE 95 mg/dL (70-105); POTASSIUM SERUM 3.7 mEq/L (3.5-5.1); SODIUM SERUM 141 mEq/L (136-145)
[2017-01-25] MEDS: Escitalopram Oxalate 5 mg Tab PO SCH (09:48)
[2017-01-25] MEDS: Nicotine 14 mg/24 hr Tdm TD SCH (09:49)
[2017-01-25] MEDS: Lactobacillus Rhamnosus 10 Billion CFU Capsule PO SCH ×2 (09:49→17:26)
[2017-01-25] MEDS: Ferrous Sulfate 325 MG TAB PO SCH ×3 (09:49→20:34)
[2017-01-25] MEDS: Potassium Chloride 20 mEq ER Tab PO SCH (09:50)
[2017-01-25] MEDS: FOLIC ACID IV SCH (11:10)
[2017-01-25] MEDS: [UNRECOGNIZED DRUG - OTHER] IV SCH (11:10)
[2017-01-25] MEDS: THIAMINE HCL IV SCH (11:10)
[2017-01-25] MEDS: MAGNESIUM SULFATE IV SCH (11:10)
[2017-01-25] MEDS: MULTIVITAMIN IV SCH (11:10)
[2017-01-25] MEDS: Pantoprazole 40 mg EC Tab PO SCH (14:08)
[2017-01-25] MEDS: OLANZapine 5 mg Oral Disintegrating Tab PO SCH (20:35)
[2017-01-26 08:19] LABS: BUN - UREA NITROGEN 3 mg/dL (7-25); BUN/CREATININE RATIO 7.5; CALCIUM SERUM 9.7 mg/dL (8.6-10.3); CHLORIDE 107 mEq/L (98-107); CREATININE - SERUM 0.4 mg/dL (0.6-1.2); GLUCOSE 92 mg/dL (70-105); POTASSIUM SERUM 3.5 mEq/L (3.5-5.1); SODIUM SERUM 140 mEq/L (136-145)
[2017-01-26 08:45] LABS: ANION GAP 6.5 (7.0-16.0)
[2017-01-26] MEDS ORDERED: Mag Sulfate 2gm/50mL Premix 2 GM/50 ML BAG IV ONE (08:59)
[2017-01-26] MEDS ORDERED: Potassium Chloride 20 mEq ER Tab PO ONE (08:59)
[2017-01-26] MEDS: Lactobacillus Rhamnosus 10 Billion CFU Capsule PO SCH ×2 (09:24→18:11)
[2017-01-26] MEDS: Ferrous Sulfate 325 MG TAB PO SCH ×3 (09:24→20:34)
[2017-01-26] MEDS: Pantoprazole 40 mg EC Tab PO SCH (09:24)
[2017-01-26] MEDS: Escitalopram Oxalate 5 mg Tab PO SCH (09:24)
[2017-01-26] MEDS: Nicotine 14 mg/24 hr Tdm TD SCH (09:25)
[2017-01-26] MEDS: Potassium Chloride 20 mEq ER Tab PO SCH (09:25)
[2017-01-26] MEDS: OLANZapine 5 mg Oral Disintegrating Tab PO SCH (20:34)
[2017-01-27] MEDS: Pantoprazole 40 mg EC Tab PO SCH (08:01)
[2017-01-27] MEDS: Nicotine 14 mg/24 hr Tdm TD SCH (08:02)
[2017-01-27] MEDS: Ferrous Sulfate 325 MG TAB PO SCH ×3 (08:02→20:37)
[2017-01-27] MEDS: Potassium Chloride 20 mEq ER Tab PO SCH (08:02)
[2017-01-27] MEDS: Escitalopram Oxalate 5 mg Tab PO SCH (08:02)
[2017-01-27] MEDS: Lactobacillus Rhamnosus 10 Billion CFU Capsule PO SCH ×2 (08:02→18:14)
[2017-01-27] MEDS ORDERED: Potassium Chloride 20 mEq ER Tab PO ONE (09:23)
[2017-01-27] MEDS ORDERED: Mag Sulfate 2gm/50mL Premix 2 GM/50 ML BAG IV ONE (09:24)
[2017-01-27] MEDS: OLANZapine 5 mg Oral Disintegrating Tab PO SCH (20:37)
[2017-01-28 05:59] LABS: HEMATOCRIT 33.1 % (35.0-45.0); MEAN CELL VOLUME 96.5 fl (81-100); MEAN CORPUSCULAR HGB CONC 33.2 pg (28.0-36.0); MEAN PLATELET VOLUME 7.5 fl; PLATELET COUNT 585 Th/cmm (150-400); RED BLOOD COUNT 3.44 Mil/cmm (3.80-5.10); RED CELL DISTRIBUTION WIDTH 19.4 % (11.5-20.0)
[2017-01-28 06:19] LABS: WHITE BLOOD COUNT 7.5 Th/cmm (4.8-10.8)
[2017-01-28 06:42] LABS: ALB/GLOB RATIO 0.9 (1.0-1.8); ALKALINE PHOSPHATASE 84 U/L (34-104); ANION GAP 5.6 (7.0-16.0); BILIRUBIN,TOTAL 0.6 mg/dL (0.3-1.0); BUN - UREA NITROGEN 4 mg/dL (7-25); CALCIUM SERUM 10.4 mg/dL (8.6-10.3); CARBON DIOXIDE 29.6 mEq/L (21.0-31.0); CHLORIDE 108 mEq/L (98-107); CREATININE - SERUM 0.4 mg/dL (0.6-1.2); GLUCOSE 91 mg/dL (70-105); MAGNESIUM 1.9 mg/dL (1.9-2.7); PHOSPHOROUS 5.5 mg/dL (2.5-5.0); POTASSIUM SERUM 4.2 mEq/L (3.5-5.1); SGOT 12 U/L (13-39); SGPT/ALT 9 U/L (7-52); SODIUM SERUM 139 mEq/L (136-145)
[2017-01-28 08:23] LABS: BASOPHIL 3 % (0-3); EOSINOPHIL 3 % (0-5); NEUTROPHILS 50 % (40-80); TOTAL CELLS COUNTED 100
[2017-01-28 08:24] LABS: PLATELET ESTIMATE INCREASED PLATELETS (NORMAL); PLATELET MORPHOLOGY NORMAL (NORMAL)
[2017-01-28] MEDS: Escitalopram Oxalate 5 mg Tab PO SCH (08:33)
[2017-01-28] MEDS: Pantoprazole 40 mg EC Tab PO SCH (08:34)
[2017-01-28] MEDS: Ferrous Sulfate 325 MG TAB PO SCH ×3 (08:34→20:44)
[2017-01-28] MEDS: Nicotine 14 mg/24 hr Tdm TD SCH (08:35)
[2017-01-28] MEDS: Potassium Chloride 20 mEq ER Tab PO SCH (08:35)
[2017-01-28] MEDS: Lactobacillus Rhamnosus 10 Billion CFU Capsule PO SCH ×2 (08:44→16:27)
[2017-01-28] MEDS: OLANZapine 5 mg Oral Disintegrating Tab PO SCH (20:44)
[2017-01-29] MEDS: Potassium Chloride 20 mEq ER Tab PO SCH (08:14)
[2017-01-29] MEDS: Ferrous Sulfate 325 MG TAB PO SCH ×3 (08:15→20:58)
[2017-01-29] MEDS: Pantoprazole 40 mg EC Tab PO SCH (08:15)
[2017-01-29] MEDS: Escitalopram Oxalate 5 mg Tab PO SCH (08:16)
[2017-01-29] MEDS: Lactobacillus Rhamnosus 10 Billion CFU Capsule PO SCH ×2 (08:16→16:07)
[2017-01-29] MEDS: Nicotine 14 mg/24 hr Tdm TD SCH (08:20)
[2017-01-29 08:59] LABS: ANION GAP 6.4 (7.0-16.0); BUN - UREA NITROGEN 10 mg/dL (7-25); CALCIUM SERUM 10.8 mg/dL (8.6-10.3); CARBON DIOXIDE 29.8 mEq/L (21.0-31.0); CHLORIDE 106 mEq/L (98-107); CREATININE - SERUM 0.5 mg/dL (0.6-1.2); GLUCOSE 91 mg/dL (70-105); POTASSIUM SERUM 4.2 mEq/L (3.5-5.1); SODIUM SERUM 138 mEq/L (136-145)
[2017-01-29] MEDS: OLANZapine 5 mg Oral Disintegrating Tab PO SCH (20:59)
[2017-01-30 06:33] LABS: BUN - UREA NITROGEN 11 mg/dL (7-25); CALCIUM SERUM 10.7 mg/dL (8.6-10.3); CARBON DIOXIDE 29.9 mEq/L (21.0-31.0); CHLORIDE 107 mEq/L (98-107); CREATININE - SERUM 0.5 mg/dL (0.6-1.2); GLUCOSE 89 mg/dL (70-105); MAGNESIUM 1.8 mg/dL (1.9-2.7); POTASSIUM SERUM 3.9 mEq/L (3.5-5.1); SODIUM SERUM 142 mEq/L (136-145)
[2017-01-30] MEDS: Escitalopram Oxalate 5 mg Tab PO SCH (08:25)
[2017-01-30] MEDS: Ferrous Sulfate 325 MG TAB PO SCH ×3 (08:25→20:19)
[2017-01-30] MEDS: Pantoprazole 40 mg EC Tab PO SCH (08:26)
[2017-01-30] MEDS: Lactobacillus Rhamnosus 10 Billion CFU Capsule PO SCH ×2 (08:26→16:12)
[2017-01-30] MEDS: Potassium Chloride 20 mEq ER Tab PO SCH (08:27)
[2017-01-30] MEDS: Nicotine 14 mg/24 hr Tdm TD SCH (08:40)
--- NOTE | 2017-01-30 16:35 | Consultation ---
PHYSICIAN REQUESTING CONSULTATION: Dr. West. REASON FOR CONSULTATION: Confusion. HISTORY OF PRESENT ILLNESS: This patient is a 56-year-old admitted here on 01/13/2017 for workup of anemia and probable related to alcohol. Chart is reviewed. The patient is interviewed and the patient is reported to have been confused at this time and psychiatric consultation is requested. During the evaluation, the patient is not too keen on giving the information. The patient has been stating that she is going to get back to me later. The patient coping skills at this time are noted to be very poor. The patient has been, however, denying any command hallucinations. The patient's sleep and appetite are noted to be fair. The patient is also noted to be on Lexapro 5 mg and Depakote 250 mg twice a day and Remeron 30 mg at bedtime and Zyprexa 5 mg and after being ____, I have decided to discontinue the Librium and discontinue the Lexapro and continue the patient with the Depakote and Zyprexa. The patient is agreeing for the same. PAST PSYCHIATRIC HISTORY: The patient reports that she was hospitalized in the psychiatric unit, but is not willing to give the information where she was at. SOCIAL HISTORY: The patient is reporting that she has been staying with the friends at this time. MENTAL STATUS EXAMINATION: The patient is a 56-year-old thin built cooperative superficially, paranoia is noted. The patient denies any command hallucinations. Insight and judgment at this time are noted to be still impaired. Impulse control seems to be fair. The patient has ____. DIAGNOSTIC IMPRESSION: Bipolar disorder, not otherwise specified. PLAN: To continue the patient with the above changes and followup. JOB# [id number]
[2017-01-30] MEDS: OLANZapine 5 mg Oral Disintegrating Tab PO SCH (20:19)
[2017-01-31 05:58] LABS: % BASOPHILS 0.9 % (0.0-2.0); % EOSINOPHILS 1.2 % (0.0-5.0); % LYMPHOCYTES 22.4 % (20.0-50.0); % MONOCYTES 14.2 % (2.0-10.0); % NEUTROPHILS 61.3 % (40.0-80.0); HEMATOCRIT 32.6 % (35.0-45.0); MEAN CELL VOLUME 96.3 fl (81-100); MEAN CORPUSCULAR HEMOGLOBIN 32.4 pg (27.0-31.0); MEAN CORPUSCULAR HGB CONC 33.6 pg (28.0-36.0); MEAN PLATELET VOLUME 7.6 fl; NEUTROPHILE ABSOLUTE 4.9 Th/cmm (1.8-8.0); RED BLOOD COUNT 3.39 Mil/cmm (3.80-5.10); RED CELL DISTRIBUTION WIDTH 18.4 % (11.5-20.0)
[2017-01-31 06:06] LABS: PLATELET COUNT 446 Th/cmm (150-400)
[2017-01-31 06:35] LABS: ALKALINE PHOSPHATASE 75 U/L (34-104); BILIRUBIN,TOTAL 0.6 mg/dL (0.3-1.0); BUN - UREA NITROGEN 11 mg/dL (7-25); BUN/CREATININE RATIO 27.5; CALCIUM SERUM 10.5 mg/dL (8.6-10.3); CARBON DIOXIDE 26.7 mEq/L (21.0-31.0); CHLORIDE 107 mEq/L (98-107); CREATININE - SERUM 0.4 mg/dL (0.6-1.2); GLUCOSE 94 mg/dL (70-105); POTASSIUM SERUM 3.7 mEq/L (3.5-5.1); SGOT 11 U/L (13-39); SGPT/ALT 8 U/L (7-52); SODIUM SERUM 140 mEq/L (136-145)
[2017-01-31] MEDS: Potassium Chloride 20 mEq ER Tab PO SCH (09:17)
[2017-01-31] MEDS: Pantoprazole 40 mg EC Tab PO SCH (09:18)
[2017-01-31] MEDS: Ferrous Sulfate 325 MG TAB PO SCH ×3 (09:18→20:11)
[2017-01-31] MEDS: Nicotine 14 mg/24 hr Tdm TD SCH (09:18)
[2017-01-31] MEDS: Lactobacillus Rhamnosus 10 Billion CFU Capsule PO SCH ×2 (09:18→18:30)
[2017-01-31] MEDS: OLANZapine 5 mg Oral Disintegrating Tab PO SCH (20:10)
--- NOTE | 2017-02-01 00:27 | Progress Notes ---
SUBJECTIVE: The patient was seen and discussed with staff. Remains anxious, depressed, and still superficial, somewhat disorganized, internally preoccupied. Her insight is poor. Judgment is still impaired. ASSESSMENT: The patient is still depressed psychosis. PLAN: We will continue mirtazapine 30 mg p.o. at bedtime, Lexapro 5 mg p.o. everyday, and increase Zyprexa to 7.5 mg p.o. at bedtime. Monitor condition closely. JOB# [id number]
[2017-02-01 06:06] LABS: ANION GAP 5.9 (7.0-16.0); BUN - UREA NITROGEN 14 mg/dL (7-25); CALCIUM SERUM 10.9 mg/dL (8.6-10.3); CHLORIDE 107 mEq/L (98-107); CREATININE - SERUM 0.5 mg/dL (0.6-1.2); GLUCOSE 112 mg/dL (70-105); MAGNESIUM 1.8 mg/dL (1.9-2.7); POTASSIUM SERUM 3.9 mEq/L (3.5-5.1); SODIUM SERUM 138 mEq/L (136-145)
[2017-02-01] MEDS: Lactobacillus Rhamnosus 10 Billion CFU Capsule PO SCH ×2 (08:43→16:14)
[2017-02-01] MEDS: Potassium Chloride 20 mEq ER Tab PO SCH (08:43)
[2017-02-01] MEDS: Nicotine 14 mg/24 hr Tdm TD SCH (08:44)
[2017-02-01] MEDS: Pantoprazole 40 mg EC Tab PO SCH (08:44)
[2017-02-01] MEDS: Ferrous Sulfate 325 MG TAB PO SCH ×3 (08:44→21:16)
[2017-02-01] MEDS: OLANZapine 5 mg Oral Disintegrating Tab PO SCH (21:17)
[2017-02-02 06:27] LABS: BUN - UREA NITROGEN 13 mg/dL (7-25); CALCIUM SERUM 10.6 mg/dL (8.6-10.3); CARBON DIOXIDE 28.7 mEq/L (21.0-31.0); CHLORIDE 109 mEq/L (98-107); CREATININE - SERUM 0.5 mg/dL (0.6-1.2); GLUCOSE 94 mg/dL (70-105); MAGNESIUM 1.9 mg/dL (1.9-2.7); POTASSIUM SERUM 3.7 mEq/L (3.5-5.1); SODIUM SERUM 138 mEq/L (136-145)
[2017-02-02] MEDS: Potassium Chloride 20 mEq ER Tab PO SCH (08:45)
[2017-02-02] MEDS: Nicotine 14 mg/24 hr Tdm TD SCH (08:46)
[2017-02-02] MEDS: Lactobacillus Rhamnosus 10 Billion CFU Capsule PO SCH ×2 (08:47→16:11)
[2017-02-02] MEDS: Pantoprazole 40 mg EC Tab PO SCH (08:47)
[2017-02-02] MEDS: Ferrous Sulfate 325 MG TAB PO SCH ×3 (08:47→21:33)
[2017-02-02] MEDS: OLANZapine 5 mg Oral Disintegrating Tab PO SCH (21:34)
--- NOTE | 2017-02-03 04:12 | Progress Notes ---
SUBJECTIVE: The patient was seen, discussed with nursing staff, still somewhat superficial, occasional depression, slightly irritable. The patient, however, is taking her medication. Her sleep is fair and appetite is fair. Her insight is still somewhat limited. PLAN: We will continue Remeron 30 mg p.o. at bedtime and Zyprexa 7.5 mg p.o. at bedtime. Continue supportive measures, monitor closely. [facility]# [id number]
[2017-02-03] MEDS: Nicotine 14 mg/24 hr Tdm TD SCH (08:54)
[2017-02-03] MEDS: Potassium Chloride 20 mEq ER Tab PO SCH (08:55)
[2017-02-03] MEDS: Lactobacillus Rhamnosus 10 Billion CFU Capsule PO SCH ×2 (08:55→16:57)
[2017-02-03] MEDS: Ferrous Sulfate 325 MG TAB PO SCH ×3 (08:55→23:30)
[2017-02-03] MEDS: Pantoprazole 40 mg EC Tab PO SCH (08:55)
[2017-02-03] MEDS: OLANZapine 5 mg Oral Disintegrating Tab PO SCH (23:30)
[2017-02-04] MEDS: Pantoprazole 40 mg EC Tab PO SCH (08:27)
[2017-02-04] MEDS: Potassium Chloride 20 mEq ER Tab PO SCH (08:27)
[2017-02-04] MEDS: Ferrous Sulfate 325 MG TAB PO SCH (08:27)
[2017-02-04] MEDS: Lactobacillus Rhamnosus 10 Billion CFU Capsule PO SCH (08:27)
[2017-02-04] MEDS: Nicotine 14 mg/24 hr Tdm TD SCH (08:33)
--- NOTE | 2017-02-04 23:17 | Discharge Summary ---
ADMITTING DIAGNOSES: Generalized weakness; acute alcohol intoxication with withdrawal symptoms; severe anemia, rule out gastrointestinal bleed; thrombocytopenia; urinary tract infection; status post fall with right eyebrow laceration. SECONDARY DIAGNOSES: History of chronic ETOH, history of nicotine dependence. DISCHARGE DIAGNOSES: Acute alcohol intoxication with withdrawal, resolved. Encephalopathy secondary to alcohol, likely Wernicke's encephalopathy; severe anemia, improved; electrolyte imbalance, resolved; nicotine dependence, on Nicoderm; chronic obstructive pulmonary disease, clinically stable; gastritis, stable; mild diverticulosis status post transverse polyps and rectal polyp removal; and depression. CONSULTANTS: Dr. Almonte, GI; Dr. Mason, Psychiatry; and Dr. Livingston, Hematology. MAJOR PROCEDURES: There was a head CT done on 01/15/2017 showing no acute intracranial abnormality, mild atrophy. On 01/17/2017 she underwent an EGD with biopsy, result is hiatal hernia, gastritis, normal duodenum. On 01/18/2017, she underwent a colonoscopy showing transverse polyps, removed by forceps, rectal polyps measuring 5 mm and removed by snare polypectomy and there was mild diverticulosis in the sigmoid and ascending colon. She underwent a small-bowel follow through showing no definite abnormalities with no evidence of bowel obstruction. MEDICATIONS ON DISCHARGE: Iron sulfate 325 t.i.d., olanzapine 7.5 at bedtime, Protonix 40 daily, Depakote 250 mg b.i.d., Neurontin 100 mg everyday, Megace 10 mL p.o. b.i.d., Remeron 30 mg at bedtime, multivitamins 1 tab everyday, folic acid 1 mg everyday, and thiamine 100 mg everyday. BRIEF HOSPITAL COURSE: A 56-year-old female with history of chronic ETOH with previous admissions to this facility, was brought into the ER with generalized weakness with poor p.o. intake and right eyebrow laceration which apparently she inflicted upon falling on the floor. The patient admitted to daily drinking about half a pint of vodka per day and also was noted to be shaky and jittery. Objective findings included an H and H of 7.9/23 and a platelet count of 77. She also had UA consistent with UTI. The patient was admitted to telemetry given her acute findings. She also had a temperature of 101.2 and occasional heart rate that was above 100. She remains somewhat tachy and feverish for the first couple of days. The patient was placed on Ativan 1 mg p.r.n., Librium 25 mg q.4 hours around the clock and was placed on empiric IV antibiotics with namely Rocephin, Zithromax, and Flagyl. She was transfused 2 units of PRBCs and she was also tested for occult blood and an iron panel as well as CEA level were asked for. The patient's withdrawals did improve, but she was noted to have poor p.o. intake for the first few days. She was also placed on a banana bag and remained on it for approximately about a week. She was placed on IV Protonix and eventually underwent the above-mentioned GI procedures with no complications. Slowly the patient was able to take p.o. and was able to get up and do certain activities, but these were limited. In the interim, her fevers did subside and her H and H improved to a level of around 9/27 post transfusion. Platelet counts were noted to be low on admission and got to a point of 58, but these were also noted to improve with time. The patient remained stable, but lethargic with poor interaction and with very limited mobility given weakness. She at times appeared to be confused, not following commands, but again had no withdrawal symptomatology. Gradually, her mental status improved, and by 02/01/2017 she appeared to be more arousable and was actually ambulating with a walker with the help of physical therapy. Currently, she is able to ambulate longer distances and appears to be stronger in her mobility. She is eating 100% and again is not showing any symptoms of withdrawal. CONDITION ON DISCHARGE: Stable. DISPOSITION: The patient will be discharged to a local board and care per her wishes. She was instructed to follow up with primary care doctor. She was also instructed to seek help with alcoholic anonymous or other supportive groups. JOB# [id number] [facility]
== END 2017-02-04 13:00 | disposition short-term general hospital (02) | DRG 661 ==
LOC: ER 13:17 → TELE 16:54 → MSI 01-19 09:20
PROVIDERS: ADMIT Internal Medicine; ATTEND Internal Medicine
PROC: 30233N1 Transfusion of Nonautologous Red Blood Cells into Peripheral Vein, Percutaneous Approach (ICD-10-PCS; 2017-01-14)
PROC: 0DB68ZX Excision of Stomach, Via Natural or Artificial Opening Endoscopic, Diagnostic (ICD-10-PCS; 2017-01-17)
PROC: 0DB98ZX Excision of Duodenum, Via Natural or Artificial Opening Endoscopic, Diagnostic (ICD-10-PCS; 2017-01-17)
PROC: 0DBP8ZX Excision of Rectum, Via Natural or Artificial Opening Endoscopic, Diagnostic (ICD-10-PCS; principal; 2017-01-18)
PROC: 0DBL8ZX Excision of Transverse Colon, Via Natural or Artificial Opening Endoscopic, Diagnostic (ICD-10-PCS; 2017-01-18)
DX: D69.59 Other secondary thrombocytopenia (principal); E51.2 Wernicke's encephalopathy; E83.42 Hypomagnesemia; F10.229 Alcohol dependence with intoxication, unspecified; N39.0 Urinary tract infection, site not specified; D50.9 Iron deficiency anemia, unspecified; F10.239 Alcohol dependence with withdrawal, unspecified; F31.9 Bipolar disorder, unspecified; D12.3 Benign neoplasm of transverse colon; S00.11XA Contusion of right eyelid and periocular area, initial encounter; Y90.8 Blood alcohol level of 240 mg/100 ml or more; F17.210 Nicotine dependence, cigarettes, uncomplicated; E87.6 Hypokalemia; K63.5 Polyp of colon; K44.9 Diaphragmatic hernia without obstruction or gangrene; K29.70 Gastritis, unspecified, without bleeding; W18.30XA Fall on same level, unspecified, initial encounter; Y93.89 Activity, other specified; Y92.049 Unspecified place in boarding-house as the place of occurrence of the external cause; Y99.8 Other external cause status; D75.89 Other specified diseases of blood and blood-forming organs; T51.8X1A Toxic effect of other alcohols, accidental (unintentional), initial encounter; J44.9 Chronic obstructive pulmonary disease, unspecified; K62.1 Rectal polyp; K57.30 Diverticulosis of large intestine without perforation or abscess without bleeding; Z82.49 Family history of ischemic heart disease and other diseases of the circulatory system; Z90.49 Acquired absence of other specified parts of digestive tract
CPT/HCPCS: 36415-UA; 70450-TC; 71010-TC; 74250-TC; 80048-TC; 80053-TC; 80320-TC; 81001-TC; 82140-TC; 82270-TC; 82378-90; 82550-TC; 82607-90; 82728-90; 82746-90; 83036-90; 83540-90; 83550-90; 83690-TC; 83735-TC; 84100-TC; 85007-TC; 85025-TC; 85027-TC; 85610-TC; 86850-TC; 86900-TC; 86901-TC; 86922-TC; 87086-90; 87230-TC; 88305-90; 88312-90; 90799; 97530; C9113; J0456; J0696; J1200; J2001; J2060; J2405; J2704; J3411; J3475; J3480; J7030; P9016; X3904; X6598; Z7610

== ENCOUNTER 2017-02-24 22:27 | Emergency (ER) | payer MEDICAID ==
--- NOTE | 2017-02-24 23:38 | ED Physician Chart ---
Chief Complaint/HPI - Patient Information Date Seen:: 02/24/17 Time Seen:: 23:25 Chief Complaint:: hip pain History of Present Illness:: Patient developed right hip pain 2 weeks ago. She also has left hip pain now and today experienced low back pain. She denies trauma. Patient is in a board- and-care; she was drinking alcohol up until 3 weeks ago. Patient has also had ankle and foot swelling for the last 2 weeks. Allergies:: Allergies Allergy/AdvReac Type Severity Reaction Status Date / Time No Known Allergies Allergy Verified 01/13/17 13:38 Historian:: Patient, EMS Review:: Nurse's Note Reviewed Review of Systems - Review of Systems General/Constitutional: No fever, No chills Skin: No skin lesions Head: No headache Eyes: No loss of vision ENT: No earache Neck: No neck pain Cardio Vascular: No chest pain, No palpitations Pulmonary: No SOB GI: No nausea, No vomiting G/U: No dysuria Musculoskeletal: Bone or joint pain, Back pain Psychiatric: No prior psych history Hematopoietic: No bruising Allergic/Immuno: No urticaria Neurological: No syncope Past Medical History - Past Medical History Past Medical History: Other (history of chronic knee pain and history of alcoholism) Family History: Diabetes Melitus Social History: Smoker Surgical History: Appendectomy Psychiatricy History: Depression Medication: Reviewed Family Medical History - Family Member Niece History Unknown: Yes Mother History Unknown: Yes Ethnicity: Non- Living Status: Hx Family Cancer: No Hx Family Coronary Artery Disease: No Hx Family Congestive Heart Failure: No Hx Family Hypertension: Yes Hx Family Stroke: No Hx Family Diabetes: No Hx Family Seizures: No Hx Family Dementia: No Hx Family AIDS: No Hx Family HIV: No Hx Family COPD: No Hx Family Hepatitis: No Hx Family Psychiatric Problems: No Hx Family Tuberculosis: No Physical Exam - Physical Examination General/Constitutional: Well-developed, well-nourished, Alert, No distress Head: Atraumatic Eyes: Lids, conjuctiva normal, PERRL Skin: Nl inspection, No rash, No skin lesions, No ecchymosis ENMT: External ears, nose nl, TM canals nl, Nasal exam nl, Lips, teeth, gums nl , Oropharynx nl, Tonsils nl Neck: No nuchal rigidity Respiratory: Nl effort/Exclusion, Clear to Auscultation, No Wheeze/Rhonchi/Rales Cardio Vascular: RRR, No murmur, gallop, rubs, NL S1 S2 GI: No tenderness/rebounding/guarding, No organomegaly, No hernia, Normal BS's, Nondistended, No mass/bruits : No CVA tenderness Other Extremities comments:: 2 out of 4 pitting edema both ankles Neuro/Psych: Alert/oriented Labs/Radiology/EKG Results - Lab Results Results: Laboratory Results - last 24 hr 02/24/17 02/24/17 02/24/17 23:40 23:40 23:40 WBC 7.7 RBC 3.56 L Hgb 11.4 L Hct 34.2 L MCV 96.2 MCH 32.1 H MCHC Differential 33.3 RDW 16.0 Plt Count 287 D MPV 7.5 Neutrophils % 57.6 Lymphocytes % 28.1 Monocytes % 10.6 H Eosinophils % 3.3 Basophils % 0.4 Sodium 135 L Potassium 3.6 Chloride 103 Carbon Dioxide 29.2 Anion Gap 6.4 L BUN 8 Creatinine 0.5 L Est GFR ( Amer) > 60.0 Est GFR (Non-Af Amer) > 60.0 BUN/Creatinine Ratio 16.0 Glucose 119 H Calcium 10.2 Magnesium 1.8 L Total Bilirubin 0.3 AST 11 L ALT 8 Alkaline Phosphatase 109 H Total Protein 7.3 Albumin 4.0 Globulin 3.3 Albumin/Globulin Ratio 1.2 - Radiology Results Results: AP pelvis: negative; LS spine: osteopenia; arthritis; no fracture. ED Septic Shock - . Is Septic Shock (SBP<90, OR Lactate>4 mmol\L) present?: No Reassessment (Disposition) - Reassessment Reassessment Condition:: Unchanged - Diagnosis Diagnosis:: low back pain; hip pain; anemia; borderline hypomagnesemia - Aftercare/Follow up Instructions Aftercare/Follow-Up Instructions:: Refer to Discharge Instructions - Patient Disposition Discharge/Transfer:: Residential/Boarding Care Condition at Disposition:: Stable, Unchanged
[2017-02-24 23:54] LABS: % BASOPHILS 0.4 % (0.0-2.0); % EOSINOPHILS 3.3 % (0.0-5.0); % LYMPHOCYTES 28.1 % (20.0-50.0); % MONOCYTES 10.6 % (2.0-10.0); % NEUTROPHILS 57.6 % (40.0-80.0); HEMATOCRIT 34.2 % (35.0-45.0); HEMOGLOBIN 11.4 gm/dL (11.7-15.5); MEAN CELL VOLUME 96.2 fl (81-100); MEAN CORPUSCULAR HEMOGLOBIN 32.1 pg (27.0-31.0); MEAN CORPUSCULAR HGB CONC 33.3 pg (28.0-36.0); MEAN PLATELET VOLUME 7.5 fl; NEUTROPHILE ABSOLUTE 4.4 Th/cmm (1.8-8.0); RED BLOOD COUNT 3.56 Mil/cmm (3.80-5.10); WHITE BLOOD COUNT 7.7 Th/cmm (4.8-10.8)
[2017-02-24 23:58] LABS: PLATELET COUNT 287 Th/cmm (150-400)
[2017-02-25 00:06] LABS: ALB/GLOB RATIO 1.2 (1.0-1.8); ALKALINE PHOSPHATASE 109 U/L (34-104); ANION GAP 6.4 (7.0-16.0); BILIRUBIN,TOTAL 0.3 mg/dL (0.3-1.0); BUN - UREA NITROGEN 8 mg/dL (7-25); CALCIUM SERUM 10.2 mg/dL (8.6-10.3); CARBON DIOXIDE 29.2 mEq/L (21.0-31.0); CHLORIDE 103 mEq/L (98-107); CREATININE - SERUM 0.5 mg/dL (0.6-1.2); GLUCOSE 119 mg/dL (70-105); POTASSIUM SERUM 3.6 mEq/L (3.5-5.1); SGOT 11 U/L (13-39); SGPT/ALT 8 U/L (7-52); SODIUM SERUM 135 mEq/L (136-145)
--- NOTE | 2017-02-25 09:46 | Diagnostic Imaging Report ---
Lumbar spine 3 views Indication: pain Comparison: none Findings: Osteopenia is noted. There is mild spinal scoliosis. No acute compression fracture or subluxation. Moderate to advanced degenerative changes are noted with mild disc space loss of height at L3/L4 moderate disc space loss of height at L4/L5. Facet degenerative changes are noted greatest in the lower lumbar spine. The SI joints are preserved. IMPRESSION: No evidence of an acute compression fracture or subluxation. If there has been history of trauma, consider further assessment with CT examination. Moderate to advanced degenerative changes. Mild scoliosis. Osteopenia. In the setting of trauma, if clinical symptoms persist and there is continued concern for an occult fracture, follow up exams in 5-7 days is suggested.
--- NOTE | 2017-02-25 09:47 | Diagnostic Imaging Report ---
Pelvis single view Indication: pain Comparison: none Findings: Osteopenia is noted. No evidence of an acute fracture or dislocation. No significant focal soft tissue swelling. The SI joints are preserved. Mild degenerative changes of the hip joints are noted. Impression: No evidence of an acute fracture. Osteopenia. In the setting of trauma, if clinical symptoms persist and there is continued concern for an occult fracture, follow up exams in 5-7 days is suggested.
== END 2017-02-25 02:17 | disposition short-term general hospital (02) ==
LOC: ER 22:27
DX: M25.551 Pain in right hip (principal); M54.5 Low back pain; D64.9 Anemia, unspecified; F17.200 Nicotine dependence, unspecified, uncomplicated; Z90.49 Acquired absence of other specified parts of digestive tract
CPT/HCPCS: 36415-UA; 72100-TC; 72170-TC; 80053-TC; 83735-TC; 85025-TC